=== PATIENT | female | born 1995 | race Caucasian/White ===

== ENCOUNTER 2020-08-08 21:29 | Inpatient (IN) ==
[2020-08-08] MEDS ORDERED: BUTORPHANOL 2 MG/ML VIAL IV PRN (21:39)
[2020-08-08] MEDS ORDERED: MEPERIDINE 50 MG/1 ML VIAL IV PRN (21:39)
[2020-08-08] MEDS ORDERED: ONDANSETRON 4 MG/2 ML VIAL IV PRN (21:39)
[2020-08-08] MEDS ORDERED: PROMETHAZINE 25 MG/1 ML VIAL IM ONE (21:51)
[2020-08-08] MEDS ORDERED: CITRIC ACID/SODIUM CITRATE 30 ML UDCUP PO ONE (21:51)
[2020-08-08] MEDS ORDERED: NALOXONE 0.4 MG/ML VIAL IV PRN (21:51)
[2020-08-08] MEDS ORDERED: FAMOTIDINE 20 MG/2 ML VIAL IV ONE (21:51)
[2020-08-08] MEDS ORDERED: hydrOXYzine HCL 25 MG/1 ML VIAL IM PRN (21:51)
[2020-08-08] MEDS ORDERED: diphenhydrAMINE 50 MG/1 ML VIAL IV PRN ×2 (21:51)
[2020-08-08] MEDS ORDERED: ONDANSETRON 4 MG/2 ML VIAL IV ONE (21:51)
[2020-08-08] MEDS ORDERED: LACTATED RINGERS 1,000 ML IV ONE (21:51)
[2020-08-08] MEDS ORDERED: LACTATED RINGERS 1,000 ML IV SCH ×2 (22:00)
[2020-08-08 22:14] LABS: Basophils % 0.2 % (0.0-0.8); Eosinophils # 0.1 10*3/uL (0.0-0.87); Hematocrit 39.3 VOL% (35.7-47.0); Immature Granulocytes % 0.4 %; Immature Granulocytes Absolute 0.05 #; Lymphocytes # 1.5 10*3/uL (1.4-4.0); Lymphocytes % 11.8 % (21.3-54.2); Mean Corpuscular HGB Conc 35.6 GM/DL (32-36); Mean Corpuscular Volume 87.7 FL (87-102); Mean Platelet Volume 9.8 FL (9.6-12.0); Neutrophils % 77.6 % (38.7-73.9); Platelet Count 176 T/CUMM (130-400); Red Blood Count 4.48 MC/CUMM (3.8-5.5); Red Cell Distribution Width 12.8 % (9.3-17.3); White Blood Count 12.4 T/CUMM (4-12)
[2020-08-08 22:32] LABS: Albumin 2.5 G/DL (3.4-5.0); Bilirubin,Total 0.5 MG/DL (0.2-1.0); Calcium 8.9 MG/DL (8.5-10.1); Osmolality,Calculated 276.5 MOS/KG (273-304); Potassium 3.5 MMOL/L (3.5-5.1); Total Protein 6.1 G/DL (6.4-8.2)
[2020-08-08] MEDS: fentaNYL 2 MCG/ROPIV 0.2% EPID 100 ML EPIDURAL SCH (22:35)
[2020-08-08] MEDS: ePHEDrine 50 MG/ML VIAL IV PRN ×2 (23:28→23:34)
[2020-08-09] MEDS ORDERED: TRANEXAMIC ACID 1,000 MG/10 ML VIAL ONE (02:49)
[2020-08-09] MEDS ORDERED: miSOPROStoL 200 MCG TABLET ONE (02:49)
[2020-08-09] MEDS ORDERED: METHYLERGONOVINE 0.2 MG/1 ML AMP ONE (02:50)
[2020-08-09] MEDS ORDERED: OXYTOCIN/LR 20 UNIT/1,000 ML BAG IV ONE (02:50)
[2020-08-09] MEDS ORDERED: LIDOCAINE 1% 50 ML VIAL ONE (02:50)
[2020-08-09] MEDS ORDERED: CARBOPROST TROMETHAMINE 250 MCG/ML AMP IM ONE (02:50)
[2020-08-09] MEDS ORDERED: SODIUM CHLORIDE 0.9% 100 ML IV ONE (02:50)
[2020-08-09 04:34] LABS: Bilirubin,Urine Negative (Negative); Blood, Urine Negative (Negative); Glucose,Urine (UA) 50 mg/dL (Negative); Ketones,Urine Negative (Negative); Mucus,Urine Occasional /LPF (Occasional); Nitrite,Urine Negative (Negative); Protein,Urine Negative; RBC,Urine <1 /HPF (0-4); Squamous Epithelial Cell,Urine Occasional /HPF (0-10); Urine Appearance CLEAR (Clear); Urine Color Yellow (Yellow); Urine Specific Gravity 1.016 (1.001-1.035); Urine Urobilinogen < 2.0 EU/DL (0.2-1.0)
[2020-08-09] MEDS: fentaNYL 2 MCG/ROPIV 0.2% EPID 100 ML EPIDURAL SCH (07:19)
[2020-08-09] MEDS ORDERED: OXYTOCIN/LR 20 UNIT/1,000 ML BAG IV SCH (07:30)
[2020-08-09 08:43] LABS: Cord Arterial Blood HCO3 18.6 MMOL/L
[2020-08-09 08:46] LABS: Cord Venous Blood HCO3 21.8 MMOL/L; Cord Venous Blood PCO2 45.5 MMHG
[2020-08-09] MEDS: BENZOCAINE 20%/MENTHOL 0.5% SPRAY 56 GM CAN TOP PRN (13:25)
[2020-08-09] MEDS: IBUPROFEN 800 MG TABLET PO PRN (13:26)
[2020-08-09] MEDS ORDERED: HYDROCORTISONE 2.5% RECTAL CREAM 30 GM TUBE TOP PRN (20:04)
[2020-08-09] MEDS: DOCUSATE SODIUM 100 MG CAPSULE PO SCH (20:22)
[2020-08-09] MEDS: WITCH HAZEL PADS 100/JAR TOP PRN (20:22)
[2020-08-10 06:48] LABS: Basophils % 0.4 % (0.0-0.8); Eosinophils # 0.5 10*3/uL (0.0-0.87); Eosinophils % 4.1 % (0.00-10.9); Hematocrit 41.2 VOL% (35.7-47.0); Hemoglobin 13.9 GM/DL (12.0-16.0); Immature Granulocytes % 0.4 %; Immature Granulocytes Absolute 0.05 #; Lymphocytes # 2.2 10*3/uL (1.4-4.0); Mean Corpuscular HGB Conc 33.7 GM/DL (32-36); Mean Corpuscular Volume 90.5 FL (87-102); Mean Platelet Volume 9.7 FL (9.6-12.0); Monocytes % 8.4 % (1.7-12.7); Neutrophils % 66.7 % (38.7-73.9); Platelet Count 138 T/CUMM (130-400); Red Blood Count 4.55 MC/CUMM (3.8-5.5); Red Cell Distribution Width 13.1 % (9.3-17.3); White Blood Count 11.1 T/CUMM (4-12)
[2020-08-10] MEDS: BENZOCAINE 20%/MENTHOL 0.5% SPRAY 56 GM CAN TOP PRN (08:02)
[2020-08-10] MEDS: WITCH HAZEL PADS 100/JAR TOP PRN (08:03)
[2020-08-10] MEDS: DOCUSATE SODIUM 100 MG CAPSULE PO SCH ×2 (08:03→21:10)
[2020-08-10] MEDS: IBUPROFEN 800 MG TABLET PO PRN (08:03)
[2020-08-10] MEDS ORDERED: IBUPROFEN 800 MG TABLET PO PRN (13:33)
[2020-08-10 20:08] VITALS: BP 117/72
== END 2020-08-10 21:30 | disposition home or self-care (01) | DRG 807 ==
LOC: N.LDOUT 21:29 → N.LD 21:31 → N.OB 08-09 11:45
PROVIDERS: ADMIT Obstetrics & Gynecology; ATTEND Obstetrics & Gynecology